=== PATIENT | female | born 1975 | race Hispanic/Latino ===

== ENCOUNTER → 2020-05-27 | Day surgery (SDC) | payer OTHER ==
[2020-05-24 16:18] LABS: BASOPHILS # (AUTO) 0.1 (0.0-0.1); EOSINOPHILS # (AUTO) 0.2 (0.0-0.4); EOSINOPHILS % 2.3 % (0.0-6.0); HEMOGLOBIN 14.1 g/dL (12.0-16.0); LYMPHOCYTES # (AUTO) 2.7 (1.0-3.2); LYMPHOCYTES % 35.2 % (18.0-39.1); MEAN CORPUSCULAR HEMOGLOBIN 28.3 pg (28-32); MEAN CORPUSCULAR VOLUME 88.2 fL (81-99); MONOCYTES # (AUTO) 0.6 (0.2-0.8); MONOCYTES % 8.2 % (4.4-11.3); NEUTROPHILS # (AUTO) 4.1 (2.1-6.9); NEUTROPHILS % 53.2 % (38.7-80.0); PLATELET COUNT 257 x10e3/uL (140-360); RED BLOOD COUNT 4.99 x10e6/uL (3.6-5.1); RED CELL DISTRIBUTION WIDTH 13.7 % (11.7-14.4)
[2020-05-24 18:56] LABS: EOSINOPHILS % (MANUAL) 2 % (0-7); LYMPHOCYTES % (MANUAL) 13 % (19-48); MONOCYTES % (MANUAL) 2 % (3.4-9.0); NEUTROPHILS % (MANUAL) 66 % (40-74); PLATELET ESTIMATE ADEQUATE; PLATELET MORPHOLOGY COMMENT NORMAL; RBC MORPHOLOGY COMMENT NORMAL
[~2020-05-27] MED LIST: ACETAMINOPHEN500 M1 PO; CEFAZOLIN SOD 1 GM/NS 50ML 100 ML IV ONE; DEXAMETHASONE SOD PHOS INJ 4 MG/ML VIAL ONE; EPINEPHRINE 1 MG/ML 30ML VIAL ONE; FENTANYL CITRATE/PF 100MCG/2 ML INJ ONE; KETOROLAC TROMETHAMINE 30 MG/ML VIAL ONE; LIDOCAINE 2% /EPINEPHRINE 20 ML SDV INJ ONE; MIDAZOLAM HCL 2 MG/2 ML VIAL ONE; ONDANSETRON HCL INJ 2MG/ML 2ML 2 MG/ML VIAL ONE; PROPOFOL IV EMULSION 10 MG/ML 20 ML VIAL ONE; ROPIVACAINE 0.5% 5 MG/ML 30 ML SDV ONE; SEVOFLURANE INHAL SOLN 250 ML PEN BTL ONE
[2020-05-27 08:51] VITALS: BP 131/88
--- NOTE | 2020-05-27 10:29 | Operative Report ---
DATE OF PROCEDURE: 05/27/2020 SURGEON: SHRUTHI HOANG MD PLACE OF SURGERY: [facility]. HISTORY: The patient is a 44-year-old female with ongoing pain of her left shoulder secondary to a left shoulder rotator cuff and labral tear, along with left shoulder impingement. The patient elected to forgo any further conservative treatment and proceed on with a left shoulder arthroscopy with rotator cuff and labral repair as well as subsequent decompression and distal clavicle resection. The risks and benefits of surgery have been outlined to her, consisting but not limited to the following: Infection, blood loss, nerve, blood vessel, tendon injury, DVT, ongoing pain, and stiffness. Informed consent was obtained. All questions answered and the patient reported satisfaction. Once again, the patient was seen in the preoperative holding area and the left shoulder was marked by myself and consent was confirmed. The risks and benefits of surgery were as above outlined to her once again and she agrees. The patient was then given a short-acting regional block by Anesthesia and then brought back to the operative suite. Time-out was taken for Ms. Nickie Ray for diagnostic arthroscopy of her left shoulder. All were in agreement including nursing staff, anesthesia, and myself. The patient was then given successful general intubation anesthetic and then transferred over to the operative table. She was placed in the beach chair position with the left shoulder fully exposed. The shoulder was then inflated with 30 mL of sterile saline. Posterior portal was made. Upon entry into the shoulder joint, the patient has significant amount of villonodular synovitis throughout the entire shoulder joint. We had made an anterior accessory portal and methodical synovectomy was carried out with a 4.0 shaver, removing the majority of the villonodular synovitis. Upon which time, type 2 labral tear was noted. The tear was from about the 11 down to around the 7 o'clock position. A lateral portal was also made. Upon this time, the labrum edges were debrided as well as the glenoid surface was abraded with a hand rasp. The two labor sutures were passed through 1 at the 10 o'clock position and the second one around the 8 o'clock position. A protective 2 drill guide sheath was then placed in and two drill holes were placed and the two labral Arthrex 2.9 labral anchors were deployed with the sutures and reattaching the labrum back down to its bony insertion. Upon range of motion testing, the labral bumper was reestablished and the shoulder was very stable. The patient was also found to have an intrasubstance rotator cuff tearing noted, it was through and through. Marked synovitis noted of the biceps tendon itself and synovectomy was completed along the edges, the rotator cuff tear was debrided. Examination into the subacromial space showed some significant marked impingement noted with marked AC arthrosis. Through both the medial and lateral portals, a 4.0 shaver and bur was then used to do subacromial decompression, i.e., acromioplasty. Upon which time, attention then turned to the distal clavicle and AC meniscus. An arthroscopic distal clavicle resection was completed using the 4.0 bur and shaver procedure arthroscopically. Copious irrigation was then carried out with entire shoulder. Attention was then redirected back to the tear. The tear was then marked arthroscopically. A small incision made over the tear. Blunt dissection carried down to the intrasubstance tear and a partial time with [id number] repairs using #1 Ethibond suture, reattaching the 2 ends of the rotator cuff tendons. Upon range of motion testing, the repair was found to be stable and intact. One final irrigation was carried out. First, second, and final counts found to be correct. Upon which time, the deep layer closure was done using 1 Ethibond, #0 Vicryl, 2-0 Vicryl and skin reapproximated with cheri and then the patient placed in sterile dressing and shoulder abduction pillow and then transferred to PACU in stable condition after successful extubation. PREOPERATIVE DIAGNOSES: 1. Left shoulder labral tear. 2. Left shoulder rotator cuff tear. 3. Left shoulder impingement AC arthrosis. POSTOPERATIVE DIAGNOSES: 1. Type 2 labral tear of the left shoulder. 2. Left shoulder intrasubstance rotator cuff tear. 3. Villonodular synovitis of the left shoulder. 4. Left shoulder impingement, AC arthrosis. PROCEDURES: 1. Diagnostic arthroscopy of the left shoulder with arthroscopic type 2 labral repair with the use of two Arthrex 2.9 labral anchors. 2. Arthroscopic synovectomy for villonodular synovitis of the left shoulder. 3. Arthroscopic subacromial decompression, i.e. acromioplasty. 4. Arthroscopic distal clavicle resection, i.e. Jonah procedure. 5. Open rotator cuff repair and reconstruction of the left shoulder rotator cuff tendon. ANESTHESIA: General with regional block. ESTIMATED BLOOD LOSS: Less than 10 mL. SPECIMEN: Soft tissue and Rice bodies, synovium. COMPLICATIONS: None. CONDITION: Stable to PACU. DISPOSITION: The patient is seen in PACU. Dressings were clean, dry. Capillary refills were brisk. The intraoperative findings were reviewed and discussed with her . Discharge wound care instructions were given. The patient asked to follow up with the clinic in 12-14 days. She is discharged with [place] as well as Keflex. Discharge wound care instructions were all discussed. We will also discuss with nursing staff. MD TRISHA ANDERSON/ELEONORA /[id number]
== END | disposition home or self-care (01) ==
LOC: OR 05:17
PROVIDERS: ATTEND Orthopaedic Surgery
DX: S43.422A Sprain of left rotator cuff capsule, initial encounter (principal); M75.42 Impingement syndrome of left shoulder; M75.52 Bursitis of left shoulder; S43.432A Superior glenoid labrum lesion of left shoulder, initial encounter; S46.112A Strain of muscle, fascia and tendon of long head of biceps, left arm, initial encounter; M75.22 Bicipital tendinitis, left shoulder; M19.012 Primary osteoarthritis, left shoulder; X58.XXXA Exposure to other specified factors, initial encounter; Z01.812 Encounter for preprocedural laboratory examination; Z11.59 Encounter for screening for other viral diseases
CPT/HCPCS: 23420; 29807; 29824; 36415; 85025; C1713; J0690; J1100; J1885; J2001; J2405; J2704; J2795; U0002; J2250; J3010